=== PATIENT | male | born 1990 | race Caucasian/White ===

== ENCOUNTER 2020-12-26 13:53 | Emergency (ER) | payer OTHER ==
[2020-12-26 13:58] VITALS: BMI 29.5
[2020-12-26] MEDS ORDERED: SODIUM CHLORIDE 1,000 ML IV STA (14:24)
[2020-12-26] MEDS ORDERED: ACETAMINOPHEN 1000 MG/100 ML VIAL (NON FORMULARY) IVPB ONE (14:24)
[2020-12-26] MEDS ORDERED: ACETAMINOPHEN INJECTION 100 ML IVPB ONE (14:31)
[2020-12-26 15:02] LABS: BASO % 0.3 % (0-2.0); EOS % 1.3 % (0-4.5); HEMATOCRIT 47.6 % (35.4-49); HEMOGLOBIN 16.2 GM/dL (11.7-16.9); LYMPH % 21.5 % (8-40); MEAN CELL VOLUME 85.3 fl (80-96); MEAN PLT VOLUME 11.2 fl (7.5-11.1); MONO % 7.4 % (3.8-10.2); NEUT % 69.5 % (42.8-82.8); PLATELET COUNT 228 10^3/uL (134-434); RBC 5.58 M/mm3 (4.00-5.60); RDW 13.5 % (11.9-15.9); WHITE BLOOD COUNT 9.4 K/mm3 (4.0-10.0)
[2020-12-26 15:04] LABS: URINE APPEARANCE CLEAR; URINE BILIRUBIN NEGATIVE (NEGATIVE); URINE COLOR YELLOW; URINE GLUCOSE (UA) NEGATIVE (NEGATIVE); URINE KETONE NEGATIVE (NEGATIVE); URINE LEUK ESTERASE NEGATIVE (NEGATIVE); URINE NITRITE NEGATIVE (NEGATIVE); URINE PROTEIN NEGATIVE (NEGATIVE)
[2020-12-26 15:26] LABS: CHLORIDE 103 mmol/L (98-107); SODIUM 133 mmol/L (136-145)
[2020-12-26 15:28] LABS: ALBUMIN 4.2 g/dl (3.4-5.0); BLOOD UREA NITROGEN 14.6 mg/dL (7-18); CALCIUM 9.5 mg/dL (8.5-10.1); CO2 28 mmol/L (21-32); LIPASE 43 U/L (73-393)
[2020-12-26 15:29] LABS: GLUCOSE,RANDOM 68 mg/dL (74-106)
[2020-12-26 15:31] LABS: CREATININE 1.1 mg/dL (0.55-1.3); SGOT/AST 127 U/L (15-37)
[2020-12-26 15:33] LABS: BILIRUBIN,TOTAL 0.5 mg/dL (0.2-1); TOT PROT 8.9 g/dl (6.4-8.2)
[2020-12-26 15:34] LABS: ALK PHOS 114 U/L (45-117)
[2020-12-26 15:43] LABS: ANION GAP 2 MMOL/L (8-16); SGPT/ALT 115 U/L (13-61)
[2020-12-26 16:22] LABS: CALCIUM 9.2 mg/dL (8.5-10.1)
[2020-12-26 16:23] LABS: ALBUMIN 4.1 g/dl (3.4-5.0); BLOOD UREA NITROGEN 13.9 mg/dL (7-18)
[2020-12-26 16:27] LABS: TOT PROT 7.8 g/dl (6.4-8.2)
[2020-12-26 16:29] LABS: BILIRUBIN,TOTAL 1.2 mg/dL (0.2-1)
[2020-12-26 19:30] VITALS: BP 136/82; PULSE 89; TEMP 98.3
== END 2020-12-26 19:30 | disposition home or self-care (01) ==
LOC: JER 13:53
PROC: 3E033NZ Introduction of Analgesics, Hypnotics, Sedatives into Peripheral Vein, Percutaneous Approach (ICD-10-PCS; principal; 2020-12-26)
PROC: 3E0337Z Introduction of Electrolytic and Water Balance Substance into Peripheral Vein, Percutaneous Approach (ICD-10-PCS; 2020-12-26)
DX: K65.9 Peritonitis, unspecified (principal)
CPT/HCPCS: 36415; 74177-TC; 80053; 81003; 83690; 85025; 87086; 99285-25; J0131; Q9967